=== PATIENT | male | born 1930 | race Caucasian/White ===

== ENCOUNTER 2018-10-08 17:55 | Emergency (ER) | payer MEDICARE ==
[~2018-10-08] VITALS: Ht 177.8 cm; Wt 75.8 kg
[2018-10-08 18:02] VITALS: BP 153/47
--- NOTE | 2018-10-08 18:54 | NUR ---
PT ADAM ARRIAGA AT THIS TIME.
[2018-10-08 19:00] LABS: BASOPHILS # (AUTO) 0.05 x10^3/uL (0-0.1); BASOPHILS % (AUTO) 1 % (0-1); EOSINOPHILS % (AUTO) 3 % (1-7); LYMPHOCYTES % (AUTO) 26 % (22-44); MD NO; MEAN CORPUSCULAR HEMOGLOBIN 32.9 pg (27.5-34.5); MEAN CORPUSCULAR HGB CONC 34.2 g/dL (33.2-36.2); MEAN CORPUSCULAR VOLUME 96.2 fL (81-97); MEAN PLATELET VOLUME 8.4 fL (7.4-10.4); MONOCYTES # (AUTO) 0.69 x10^3/uL (0.2-0.8); MONOCYTES % (AUTO) 11 % (2-9); NEUTROPHILS # (AUTO) 3.92 x10^3/uL (1.8-6.8); NEUTROPHILS % (AUTO) 60 % (42-75); PLATELET COUNT 177 x10^3/uL (130-400); RED BLOOD COUNT 4.54 x10^6/uL (4.38-5.82); RED CELL DISTRIBUTION WIDTH 13.5 % (9.4-14.8)
[2018-10-08 19:11] LABS: ALANINE AMINOTRANSFERASE 24 U/L (12-78); ALBUMIN 3.5 g/dL (3.4-5.0); ANION GAP 6 mmol/L (5-15); CALCIUM 8.5 mg/dL (8.5-10.1); CHLORIDE 108 mmol/L (98-107); CREATININE 1.03 mg/dL (0.7-1.3)
[2018-10-08 19:13] LABS: ALKALINE PHOSPHATASE 66 U/L (45-117); BILIRUBIN,TOTAL 0.3 mg/dL (0.2-1.0); TOTAL PROTEIN 6.8 g/dL (6.4-8.2)
--- NOTE | 2018-10-08 19:15 | NUR ---
PT RETURNED FROM [facility] AT THIS TIME .
== END 2018-10-08 20:22 | disposition home or self-care (01) ==
LOC: ED 20:02
DX: R60.0 Localized edema (principal); E78.5 Hyperlipidemia, unspecified; I10 Essential (primary) hypertension; Z85.828 Personal history of other malignant neoplasm of skin
CPT/HCPCS: 36415; 80053; 85025; 93005; 99284

== ENCOUNTER 2019-05-17 09:23 | Outpatient (CLI) | payer MEDICARE | END 2019-05-17 23:59 | disposition home or self-care (01) | LOC: CFH 09:23 | PROVIDERS: ATTEND Internal Medicine | DX: I65.23 Occlusion and stenosis of bilateral carotid arteries (principal); R27.0 Ataxia, unspecified | CPT/HCPCS: 93880 ==

== ENCOUNTER 2020-01-12 11:20 | Inpatient (IN) | payer MEDICARE ==
[~2020-01-12] VITALS: Ht 177.8 cm; Wt 80.8 kg
[~2020-01-12 11:20] MED LIST: CEFAZOLIN 1,000 MG ONE; ONDANSETRON 2MG/ML, 2ML ONE; PROPOFOL 10 MG/ML, 20ML ONE; SUCCINYLCHOLINE 20 MG/ML, 10ML ONE
[2020-01-12] MEDS ORDERED: MORPHINE SULFATE 4 MG/ML, 1ML ONE ×2 (11:38→13:55)
[2020-01-12] MEDS: MORPHINE SULFATE 4 MG/ML, 1ML IVPush PRN ×2 (11:47→14:00)
--- NOTE | 2020-01-12 11:56 | NUR ---
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 Recieved report that patient was gardening, had a fall, but did not hit head, no neck or head tenderness, but has signficant pain in tenderness with extensions of femur at the hip. Patient had some pain at the knee, but has resolved after administration of Fentanyl by the [facility] staff. Pain continues to be an issue in the left hip especially with extension, but patient reports minimal tenderness with palpation. Provider to bedside, completing assessment. orders placed for analgesic medication. RN returned, administered narcotic analgesic medication and removed patients superfluous clothing for imaging. Patient resting comforrtably at the moment with leg elevated and external rotation minimized. Awaiting imaging of hip.
[2020-01-12] MEDS ORDERED: PLEASE ENTER HEIGHT AND WEIGHT MC SCH (12:00)
[2020-01-12] MEDS ORDERED: ONDANSETRON 2MG/ML, 2ML IVPush ONE (12:00)
[2020-01-12] MEDS ORDERED: SODIUM CHLORIDE FLUSH 10ML SYR IVF ONE (12:00)
[2020-01-12] MEDS ORDERED: SODIUM CHLORIDE 0.9% 1,000 ML IV ONE ×2 (12:49→12:59)
[2020-01-12 12:55] LABS: BASOPHILS # (AUTO) 0.05 x10^3/uL (0-0.1); BASOPHILS % (AUTO) 1 % (0-1); EOSINOPHILS # (AUTO) 0.14 x10^3/uL (0-0.4); EOSINOPHILS % (AUTO) 2 % (1-7); LYMPHOCYTES % (AUTO) 18 % (22-44); MD NO; MEAN CORPUSCULAR HEMOGLOBIN 32.5 pg (27.5-34.5); MEAN CORPUSCULAR HGB CONC 33.2 g/dL (33.2-36.2); MEAN CORPUSCULAR VOLUME 97.8 fL (81-97); MONOCYTES # (AUTO) 0.51 x10^3/uL (0.2-0.8); MONOCYTES % (AUTO) 7 % (2-9); NEUTROPHILS # (AUTO) 5.39 x10^3/uL (1.8-6.8); NEUTROPHILS % (AUTO) 73 % (42-75); PLATELET COUNT 171 x10^3/uL (130-400); RED BLOOD COUNT 4.84 x10^6/uL (4.38-5.82); RED CELL DISTRIBUTION WIDTH 14.1 % (9.4-14.8)
[2020-01-12] MEDS ORDERED: ONDANSETRON 2MG/ML, 2ML IVPush PRN ×3 (13:00→18:00)
[2020-01-12] MEDS ORDERED: HYDROmorphone 1 MG/ML, 1ML INJ IVPush PRN (13:00)
[2020-01-12] MEDS ORDERED: SODIUM CHLORIDE FLUSH 10ML SYR IVF PRN (13:00)
[2020-01-12 13:06] LABS: INTERNATIONAL NORMALIZED RATIO 1.07 (0.93-1.1); PROTHROMBIN TIME 11.3 Seconds (9.6-11.5)
[2020-01-12 13:07] LABS: ALBUMIN 3.5 g/dL (3.4-5.0); ANION GAP 8 mmol/L (5-15); CHLORIDE 101 mmol/L (98-107)
--- NOTE | 2020-01-12 13:19 | NUR ---
Patient back from CT. Orders placed for admission. Hospitalist at bedside completing bedside assessment. Awaiting admission bed. RN checked vitals, vital signs stable, see vital sign flowsheet
[2020-01-12] MEDS: LISINOPRIL 10 MG TABLET PO SCH (13:30)
[2020-01-12] MEDS ORDERED: GABAPENTIN 300 MG CAPSULE PO PRN (13:30)
[2020-01-12] MEDS ORDERED: BACLOFEN 10 MG TABLET PO PRN (13:30)
[2020-01-12] MEDS ORDERED: ONDANSETRON ODT 4 MG PO PRN (13:30)
[2020-01-12] MEDS ORDERED: ACETAMINOPHEN 325 MG TABLET PO PRN (13:30)
[2020-01-12] MEDS ORDERED: hydrALAzine 20 MG/ML, 1ML IVPush PRN (13:30)
[2020-01-12] MEDS ORDERED: PRAV40TA2 PO (14:04)
[2020-01-12] MEDS ORDERED: BENA20TA5 PO (14:04)
[2020-01-12] MEDS ORDERED: TEMA15CA PO (14:04)
[2020-01-12] MEDS ORDERED: LEVO100T5 PO (14:04)
[2020-01-12] MEDS ORDERED: ASPI-496 PO (14:06)
[2020-01-12] MEDS ORDERED: TIMO5DRO5 OP (14:06)
--- NOTE | 2020-01-12 14:06 | NUR ---
TASK RN: PT MEDICATED PER EMAR. MED REC DONE.
[2020-01-12 14:50] VITALS: BP 174/68
[2020-01-12 15:50] VITALS: BP 172/61
[2020-01-12] MEDS ORDERED: MIDAZOLAM 1 MG/ML, 2ML ONE (15:56)
[2020-01-12] MEDS ORDERED: FENTANYL PF 250 MCG/5ML ONE (15:56)
[2020-01-12] MEDS: HYDROmorphone 2 MG/ML, 1ML IVPush PRN ×3 (16:04→20:27)
[2020-01-12 16:20] VITALS: BP 180/63
[2020-01-12] MEDS ORDERED: TRANEXAMIC ACID 100 MG/ML, 10ML ONE (17:29)
[2020-01-12] MEDS ORDERED: LABETALOL 5MG/ML, 20ML IV PRN (18:00)
[2020-01-12] MEDS ORDERED: ALBUTEROL SULFATE 2.5 MG/3 ML NPPB PRN (18:00)
[2020-01-12] MEDS ORDERED: METOCLOPRAMIDE 5 MG/ML, 2ML IV PRN (18:00)
[2020-01-12] MEDS ORDERED: DIAZEPAM 5 MG/ML, 2ML IV PRN ×2 (18:00)
[2020-01-12] MEDS ORDERED: KETOROLAC 30 MG/1 ML IV PRN (18:00)
[2020-01-12] MEDS ORDERED: MEPERIDINE/PF 25MG/0.5ML IVPush PRN (18:00)
[2020-01-12] MEDS ORDERED: hydrALAzine 20 MG/ML, 1ML IV PRN (18:00)
[2020-01-12] MEDS ORDERED: OXYcodone 5 MG/5 ML ORAL.SOL UDC PO PRN (18:00)
[2020-01-12] MEDS ORDERED: FENTANYL PF 100 MCG/2ML IV PRN (18:00)
[2020-01-12] MEDS ORDERED: HYDROmorphone 1 MG/ML, 1ML INJ IV PRN (18:00)
[2020-01-12] MEDS ORDERED: PROMETHAZINE 25 MG/ML, 1ML IV PRN (18:00)
[2020-01-12] MEDS ORDERED: OXYcodone 5 MG/5 ML ORAL.SOL UDC ONE (18:57)
[2020-01-12] MEDS ORDERED: FENTANYL PF 100 MCG/2ML ONE (18:57)
[2020-01-12 19:35] VITALS: BP 100/49
[2020-01-12] MEDS: OXYcodone IR 5MG TABLET PO PRN (20:20)
[2020-01-12] MEDS: PRAVASTATIN 20 MG TABLET PO SCH ×2 (20:20→21:00)
[2020-01-12] MEDS: TIMOLOL MC SCH (21:00)
[2020-01-12] MEDS: BENAZAPRIL MC SCH (21:00)
[2020-01-12] MEDS ORDERED: TEMAZEPAM 15 MG CAPSULE PO PRN (21:00)
[2020-01-13] MEDS ORDERED: SODIUM CHLORIDE 0.9%, 500ML IVBOLUS ONE ×2 (00:30→17:00)
[2020-01-13 00:44] VITALS: BP 101/61
[2020-01-13] MEDS: CEFAZOLIN PMX 1GM/50ML 50 ML IV SCH ×3 (02:43→18:32)
[2020-01-13 04:04] VITALS: BP 84/53
[2020-01-13] MEDS ORDERED: LACTATED RINGERS 1,000 ML IV SCH ×2 (04:30→10:00)
[2020-01-13 04:47] LABS: BASOPHILS # (AUTO) 0.03 x10^3/uL (0-0.1); BASOPHILS % (AUTO) 0 % (0-1); EOSINOPHILS % (AUTO) 1 % (1-7); LYMPHOCYTES # (AUTO) 1.14 x10^3/uL (1-3.4); LYMPHOCYTES % (AUTO) 9 % (22-44); MD NO; MEAN CORPUSCULAR HEMOGLOBIN 33.3 pg (27.5-34.5); MEAN CORPUSCULAR HGB CONC 34.2 g/dL (33.2-36.2); MEAN CORPUSCULAR VOLUME 97.3 fL (81-97); MEAN PLATELET VOLUME 8.1 fL (7.4-10.4); MONOCYTES # (AUTO) 0.87 x10^3/uL (0.2-0.8); MONOCYTES % (AUTO) 7 % (2-9); NEUTROPHILS # (AUTO) 9.87 x10^3/uL (1.8-6.8); NEUTROPHILS % (AUTO) 82 % (42-75); PLATELET COUNT 150 x10^3/uL (130-400); RED BLOOD COUNT 3.26 x10^6/uL (4.38-5.82)
[2020-01-13 04:49] LABS: ANION GAP 7 mmol/L (5-15); CALCIUM 8.1 mg/dL (8.5-10.1); CHLORIDE 103 mmol/L (98-107); CREATININE 1.41 mg/dL (0.7-1.3)
[2020-01-13] MEDS: TIMOLOL MC SCH ×3 (05:00→21:00)
[2020-01-13] MEDS: BENAZAPRIL MC SCH ×3 (05:00→21:00)
[2020-01-13] MEDS: ASPIRIN 81 MG TABLET EC PO SCH (05:38)
[2020-01-13] MEDS: LEVOTHYROXINE 100 MCG TABLET PO SCH (05:38)
[2020-01-13 07:58] VITALS: BP 96/58
[2020-01-13] MEDS: LISINOPRIL 10 MG TABLET PO SCH (08:12)
[2020-01-13] MEDS ORDERED: LACTATED RINGERS 500 ML IVBOLUS ONE (08:30)
[2020-01-13] MEDS ORDERED: LACTATED RINGERS 500 ML IV SCH (09:00)
[2020-01-13] MEDS: ENOXAPARIN 40 MG/0.4 ML SQ SCH (11:12)
[2020-01-13 13:28] VITALS: BP 90/57
[2020-01-13] MEDS: SODIUM CHLORIDE 0.9% 1,000 ML IV SCH (17:14)
[2020-01-13 17:57] VITALS: BP 128/68
[2020-01-13] MEDS: OXYcodone IR 5MG TABLET PO PRN ×2 (18:38→22:40)
[2020-01-13 19:24] VITALS: BP 112/42
[2020-01-13] MEDS: PRAVASTATIN 20 MG TABLET PO SCH (21:09)
[2020-01-14] MEDS: CEFAZOLIN PMX 1GM/50ML 50 ML IV SCH ×3 (02:21→18:15)
[2020-01-14 02:22] VITALS: BP 108/46
[2020-01-14 04:53] LABS: BASOPHILS # (AUTO) 0.03 x10^3/uL (0-0.1); BASOPHILS % (AUTO) 0 % (0-1); EOSINOPHILS # (AUTO) 0.43 x10^3/uL (0-0.4); EOSINOPHILS % (AUTO) 5 % (1-7); LYMPHOCYTES # (AUTO) 1.61 x10^3/uL (1-3.4); LYMPHOCYTES % (AUTO) 17 % (22-44); MD NO; MEAN CORPUSCULAR HEMOGLOBIN 32.6 pg (27.5-34.5); MEAN CORPUSCULAR HGB CONC 33.4 g/dL (33.2-36.2); MEAN CORPUSCULAR VOLUME 97.4 fL (81-97); MEAN PLATELET VOLUME 8.2 fL (7.4-10.4); MONOCYTES # (AUTO) 1.13 x10^3/uL (0.2-0.8); MONOCYTES % (AUTO) 12 % (2-9); NEUTROPHILS # (AUTO) 6.39 x10^3/uL (1.8-6.8); NEUTROPHILS % (AUTO) 67 % (42-75); PLATELET COUNT 122 x10^3/uL (130-400); RED CELL DISTRIBUTION WIDTH 14.5 % (9.4-14.8)
[2020-01-14] MEDS: BENAZAPRIL MC SCH (05:00)
[2020-01-14] MEDS: TIMOLOL MC SCH (05:00)
[2020-01-14 05:03] LABS: ALANINE AMINOTRANSFERASE 13 U/L (12-78); ALBUMIN 2.2 g/dL (3.4-5.0); ANION GAP 5 mmol/L (5-15); CALCIUM 7.7 mg/dL (8.5-10.1); CHLORIDE 102 mmol/L (98-107); CREATININE 1.56 mg/dL (0.7-1.3)
[2020-01-14 05:06] LABS: ALKALINE PHOSPHATASE 31 U/L (45-117); BILIRUBIN,TOTAL 0.4 mg/dL (0.2-1.0); TOTAL PROTEIN 4.9 g/dL (6.4-8.2)
[2020-01-14] MEDS: ASPIRIN 81 MG TABLET EC PO SCH (05:15)
[2020-01-14] MEDS: LEVOTHYROXINE 100 MCG TABLET PO SCH (05:15)
[2020-01-14] MEDS: SODIUM CHLORIDE 0.9% 1,000 ML IV SCH ×2 (05:15→16:02)
[2020-01-14 07:14] VITALS: BP 130/66
[2020-01-14] MEDS: OXYcodone IR 5MG TABLET PO PRN (07:38)
[2020-01-14] MEDS: LISINOPRIL 10 MG TABLET PO SCH (09:00)
[2020-01-14] MEDS: ENOXAPARIN 40 MG/0.4 ML SQ SCH (10:09)
[2020-01-14] MEDS: TAMSULOSIN 0.4 MG CAP.ER.24H PO SCH (13:06)
[2020-01-14 13:41] VITALS: BP 111/43
[2020-01-14] MEDS ORDERED: BISACODYL 10 MG SUPP PR PRN (17:00)
[2020-01-14 19:47] VITALS: BP 135/55
[2020-01-14] MEDS: PRAVASTATIN 20 MG TABLET PO SCH (20:30)
[2020-01-14] MEDS: DOCUSATE 100 MG CAPSULE PO SCH (20:30)
[2020-01-14] MEDS: TIMOLOL OPHTH 0.5%, 5ML LEFTEYE SCH (20:30)
[2020-01-15] VITALS (8 sets, daily range): BP systolic 52–153; BP diastolic 48–65
[2020-01-15 00:52] LABS: MEAN CORPUSCULAR HEMOGLOBIN 32.4 pg (27.5-34.5); MEAN CORPUSCULAR HGB CONC 33.4 g/dL (33.2-36.2); MEAN CORPUSCULAR VOLUME 96.9 fL (81-97); MEAN PLATELET VOLUME 7.7 fL (7.4-10.4); PLATELET COUNT 116 x10^3/uL (130-400); RED BLOOD COUNT 2.35 x10^6/uL (4.38-5.82); RED CELL DISTRIBUTION WIDTH 14.3 % (9.4-14.8)
[2020-01-15 01:09] LABS: BASOPHILS # (AUTO) 0.02 x10^3/uL (0-0.1); BASOPHILS % (AUTO) 0 % (0-1); EOSINOPHILS # (AUTO) 0.06 x10^3/uL (0-0.4); EOSINOPHILS % (AUTO) 1 % (1-7); LYMPHOCYTES % (AUTO) 12 % (22-44); MD SCAN; MONOCYTES # (AUTO) 0.48 x10^3/uL (0.2-0.8); MONOCYTES % (AUTO) 8 % (2-9); NEUTROPHILS # (AUTO) 4.71 x10^3/uL (1.8-6.8); NEUTROPHILS % (AUTO) 79 % (42-75)
[2020-01-15] MEDS: SODIUM CHLORIDE 0.9% 1,000 ML IV SCH ×2 (03:00→11:43)
[2020-01-15 05:23] LABS: MEAN CORPUSCULAR HEMOGLOBIN 33.2 pg (27.5-34.5); MEAN CORPUSCULAR HGB CONC 34.1 g/dL (33.2-36.2); MEAN CORPUSCULAR VOLUME 97.4 fL (81-97); PLATELET COUNT 110 x10^3/uL (130-400); RED BLOOD COUNT 2.18 x10^6/uL (4.38-5.82); RED CELL DISTRIBUTION WIDTH 14.2 % (9.4-14.8)
[2020-01-15 05:28] LABS: ALBUMIN 2.1 g/dL (3.4-5.0); ANION GAP 4 mmol/L (5-15); CALCIUM 7.6 mg/dL (8.5-10.1); CHLORIDE 105 mmol/L (98-107)
[2020-01-15 05:31] LABS: ALANINE AMINOTRANSFERASE 15 U/L (12-78); ALKALINE PHOSPHATASE 37 U/L (45-117); BILIRUBIN,TOTAL 0.7 mg/dL (0.2-1.0); TOTAL PROTEIN 4.8 g/dL (6.4-8.2)
[2020-01-15] MEDS: ASPIRIN 81 MG TABLET EC PO SCH (06:00)
[2020-01-15 06:06] LABS: BASOPHILS # (AUTO) 0.03 x10^3/uL (0-0.1); BASOPHILS % (AUTO) 1 % (0-1); EOSINOPHILS # (AUTO) 0.12 x10^3/uL (0-0.4); EOSINOPHILS % (AUTO) 2 % (1-7); LYMPHOCYTES # (AUTO) 1.03 x10^3/uL (1-3.4); LYMPHOCYTES % (AUTO) 17 % (22-44); MD SCAN; MONOCYTES # (AUTO) 0.73 x10^3/uL (0.2-0.8); MONOCYTES % (AUTO) 12 % (2-9); NEUTROPHILS % (AUTO) 69 % (42-75)
[2020-01-15] MEDS: LEVOTHYROXINE 100 MCG TABLET PO SCH (06:15)
[2020-01-15] MEDS ORDERED: ACETAMINOPHEN 325 MG TABLET PO ONE (07:30)
[2020-01-15] MEDS ORDERED: DIPHENHYDRAMINE 50 MG/ML, 1ML IVPush ONE (07:30)
[2020-01-15] MEDS ORDERED: SODIUM CHLORIDE NASAL SPRAY 45ML BOTTLE NAS PRN (08:30)
[2020-01-15] MEDS ORDERED: OXYMETAZOLINE NASAL SPRAY 0.05%, 15ML NAS PRN (08:30)
[2020-01-15] MEDS: LISINOPRIL 10 MG TABLET PO SCH (08:37)
[2020-01-15] MEDS: FLUTICASONE NASAL SPRAY 16GM NAS SCH ×2 (09:00→20:24)
[2020-01-15] MEDS ORDERED: MAGNESIUM HYDROXIDE 8%, 30ML UDC PO SCH (09:00)
[2020-01-15] MEDS: ENOXAPARIN 40 MG/0.4 ML SQ SCH (09:06)
[2020-01-15] MEDS: POLYETHYLENE GLYCOL 17 GM PACKET PO SCH (09:15)
[2020-01-15] MEDS: TAMSULOSIN 0.4 MG CAP.ER.24H PO SCH (09:15)
[2020-01-15] MEDS: DOCUSATE 100 MG CAPSULE PO SCH ×2 (09:15→20:24)
[2020-01-15] MEDS ORDERED: MAGNESIUM HYDROXIDE 8%, 30ML UDC PO PRN (09:30)
[2020-01-15] MEDS ORDERED: CALCIUM CARBONATE 500 MG TAB.CHEW ONE (13:18)
[2020-01-15] MEDS ORDERED: OMEPRAZOLE 20 MG CAPSULE.DR ONE (13:18)
[2020-01-15] MEDS: OMEPRAZOLE 20 MG CAPSULE.DR PO SCH (13:20)
[2020-01-15] MEDS ORDERED: CALCIUM CARBONATE 500 MG TAB.CHEW PO PRN (13:30)
[2020-01-15] MEDS ORDERED: CALCIUM CARBONATE 500 MG TAB.CHEW PO SCH (16:00)
[2020-01-15] MEDS: PRAVASTATIN 20 MG TABLET PO SCH (20:24)
[2020-01-15] MEDS: TIMOLOL OPHTH 0.5%, 5ML LEFTEYE SCH (20:24)
[2020-01-16 01:44] VITALS: BP 149/72
[2020-01-16] MEDS: OXYcodone IR 5MG TABLET PO PRN ×3 (02:33→23:29)
[2020-01-16] MEDS: SODIUM CHLORIDE 0.9% 1,000 ML IV SCH ×3 (02:34→17:18)
[2020-01-16 05:54] LABS: ALBUMIN 2.1 g/dL (3.4-5.0); ANION GAP 5 mmol/L (5-15); CALCIUM 7.7 mg/dL (8.5-10.1); CHLORIDE 106 mmol/L (98-107)
[2020-01-16 05:55] LABS: BASOPHILS # (AUTO) 0.03 x10^3/uL (0-0.1); BASOPHILS % (AUTO) 1 % (0-1); EOSINOPHILS # (AUTO) 0.26 x10^3/uL (0-0.4); EOSINOPHILS % (AUTO) 4 % (1-7); LYMPHOCYTES # (AUTO) 1.24 x10^3/uL (1-3.4); LYMPHOCYTES % (AUTO) 19 % (22-44); MD NO; MEAN CORPUSCULAR HEMOGLOBIN 32.3 pg (27.5-34.5); MEAN CORPUSCULAR HGB CONC 33.5 g/dL (33.2-36.2); MEAN CORPUSCULAR VOLUME 96.4 fL (81-97); MEAN PLATELET VOLUME 8.2 fL (7.4-10.4); MONOCYTES # (AUTO) 0.74 x10^3/uL (0.2-0.8); MONOCYTES % (AUTO) 11 % (2-9); NEUTROPHILS # (AUTO) 4.34 x10^3/uL (1.8-6.8); NEUTROPHILS % (AUTO) 66 % (42-75); PLATELET COUNT 129 x10^3/uL (130-400); RED BLOOD COUNT 2.53 x10^6/uL (4.38-5.82); RED CELL DISTRIBUTION WIDTH 14.4 % (9.4-14.8)
[2020-01-16 05:58] LABS: ALANINE AMINOTRANSFERASE 21 U/L (12-78); ALKALINE PHOSPHATASE 43 U/L (45-117); CREATININE 0.73 mg/dL (0.7-1.3); TOTAL PROTEIN 4.9 g/dL (6.4-8.2)
[2020-01-16] MEDS: LEVOTHYROXINE 100 MCG TABLET PO SCH (06:24)
[2020-01-16] MEDS: OMEPRAZOLE 20 MG CAPSULE.DR PO SCH (06:24)
[2020-01-16 08:00] VITALS: BP 140/54
[2020-01-16] MEDS: FLUTICASONE NASAL SPRAY 16GM NAS SCH ×2 (08:42→20:30)
[2020-01-16] MEDS: POLYETHYLENE GLYCOL 17 GM PACKET PO SCH (08:42)
[2020-01-16] MEDS: DOCUSATE 100 MG CAPSULE PO SCH ×2 (08:42→20:28)
[2020-01-16] MEDS: LISINOPRIL 10 MG TABLET PO SCH (08:42)
[2020-01-16] MEDS: TAMSULOSIN 0.4 MG CAP.ER.24H PO SCH (08:42)
[2020-01-16 12:43] VITALS: BP 137/60
[2020-01-16 19:18] VITALS: BP 148/57
[2020-01-16] MEDS: PRAVASTATIN 20 MG TABLET PO SCH (20:28)
[2020-01-16] MEDS: TIMOLOL OPHTH 0.5%, 5ML LEFTEYE SCH (20:28)
[2020-01-17] MEDS: SODIUM CHLORIDE 0.9% 1,000 ML IV SCH ×2 (02:13→18:00)
[2020-01-17 02:19] VITALS: BP 164/67
[2020-01-17] MEDS: LEVOTHYROXINE 100 MCG TABLET PO SCH (04:49)
[2020-01-17] MEDS: OMEPRAZOLE 20 MG CAPSULE.DR PO SCH (04:49)
[2020-01-17 05:21] LABS: BASOPHILS # (AUTO) 0.06 x10^3/uL (0-0.1); BASOPHILS % (AUTO) 1 % (0-1); EOSINOPHILS # (AUTO) 0.28 x10^3/uL (0-0.4); EOSINOPHILS % (AUTO) 4 % (1-7); LYMPHOCYTES # (AUTO) 1.28 x10^3/uL (1-3.4); LYMPHOCYTES % (AUTO) 18 % (22-44); MD NO; MEAN CORPUSCULAR HEMOGLOBIN 32.1 pg (27.5-34.5); MEAN CORPUSCULAR HGB CONC 32.9 g/dL (33.2-36.2); MEAN CORPUSCULAR VOLUME 97.6 fL (81-97); MEAN PLATELET VOLUME 7.5 fL (7.4-10.4); MONOCYTES # (AUTO) 0.85 x10^3/uL (0.2-0.8); MONOCYTES % (AUTO) 12 % (2-9); NEUTROPHILS # (AUTO) 4.55 x10^3/uL (1.8-6.8); NEUTROPHILS % (AUTO) 65 % (42-75); PLATELET COUNT 165 x10^3/uL (130-400); RED CELL DISTRIBUTION WIDTH 13.9 % (9.4-14.8)
[2020-01-17 05:32] LABS: ANION GAP 4 mmol/L (5-15); CALCIUM 8.1 mg/dL (8.5-10.1); CHLORIDE 105 mmol/L (98-107); CREATININE 0.74 mg/dL (0.7-1.3)
[2020-01-17 07:15] VITALS: BP 165/69
[2020-01-17] MEDS: DOCUSATE 100 MG CAPSULE PO SCH (09:00)
[2020-01-17] MEDS: TAMSULOSIN 0.4 MG CAP.ER.24H PO SCH (09:00)
[2020-01-17] MEDS: POLYETHYLENE GLYCOL 17 GM PACKET PO SCH (09:00)
[2020-01-17] MEDS: FLUTICASONE NASAL SPRAY 16GM NAS SCH (09:00)
[2020-01-17] MEDS: LISINOPRIL 10 MG TABLET PO SCH (09:05)
[2020-01-17 10:50] VITALS: BP_SYST 156; BP_SYST 157; BP_SYST 93; BP_DIAS 52; BP_DIAS 63; BP_DIAS 80
[2020-01-17] MEDS ORDERED: OXYC5TAB3 PO (11:29)
[2020-01-17] MEDS ORDERED: TAMS-11 PO (11:29)
[2020-01-17 13:50] VITALS: BP 147/79
== END 2020-01-17 18:50 | disposition home or self-care (01) | DRG 469 ==
LOC: ED 12:18 → EDIP 12:59 → SUATTDRO 13:09 → 4NE 14:36
PROVIDERS: ADMIT Hospitalist; ATTEND Hospitalist
PROC: 30233N1 Transfusion of Nonautologous Red Blood Cells into Peripheral Vein, Percutaneous Approach (ICD-10-PCS; 2020-01-15)
PROC: 0SRS0JA Replacement of Left Hip Joint, Femoral Surface with Synthetic Substitute, Uncemented, Open Approach (ICD-10-PCS; principal; 2020-01-16)
PROC: 0MBM0ZZ Excision of Left Hip Bursa and Ligament, Open Approach (ICD-10-PCS; 2020-01-16)
DX: S72.012A Unspecified intracapsular fracture of left femur, initial encounter for closed fracture (principal); N17.0 Acute kidney failure with tubular necrosis; E03.9 Hypothyroidism, unspecified; E78.5 Hyperlipidemia, unspecified; H40.9 Unspecified glaucoma; I10 Essential (primary) hypertension; I95.1 Orthostatic hypotension; R33.9 Retention of urine, unspecified; I44.7 Left bundle-branch block, unspecified; D64.9 Anemia, unspecified; W01.0XXA Fall on same level from slipping, tripping and stumbling without subsequent striking against object, initial encounter; Y93.89 Activity, other specified; Z87.891 Personal history of nicotine dependence; Y92.098 Other place in other non-institutional residence as the place of occurrence of the external cause; Y99.8 Other external cause status
CPT/HCPCS: 36415; 71045; 72170; 80048; 80053; 82040; 84443; 85014; 85018; 85025; 85610; 85730; 86850; 86900; 86923; 93005; 96374; 96376; G0378; J0690; J1170; J1650; J2250; J2405; J2704; J3010; J7120; C1776; J0330; J0360; J1200; J2270; J7030; J7040; P9016

== ENCOUNTER 2020-06-06 13:02 | Inpatient (IN) | payer MEDICARE ==
[~2020-06-06] VITALS: Ht 177.8 cm; Wt 71.7 kg
[~2020-06-06 13:02] MED LIST changes: +ASPI-496 PO; +BENA20TA5 PO; -CEFAZOLIN 1,000 MG ONE; +LEVO100T5 PO; -ONDANSETRON 2MG/ML, 2ML ONE; +OXYC5TAB3 PO; +PRAV40TA2 PO; -PROPOFOL 10 MG/ML, 20ML ONE; -SUCCINYLCHOLINE 20 MG/ML, 10ML ONE; +TAMS-11 PO; +TEMA15CA PO; +TIMO5DRO5 OP
--- NOTE | 2020-06-06 13:05 | NUR ---
MANAGER ACADEMIC: MEMORY LOSS 30 MINUTES PURCHASING/RECEIVING (UNABLE TO NAME OBJECTS/PEOPLE), LIGHTHEADED, IMPAIRED BALANCE TAKES ASPIRIN DENIES HEADACHE, CP, SOB, TINGLING, NUMBNESS. NO ARM DRIFT, FACE SYMMETRICAL. IN TRIAGE TO EVAL PATIENT.
--- NOTE | 2020-06-06 13:28 | NUR ---
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 NO SLURRED SPEACH OR NEURO DEFICITS NOTED
[2020-06-06 13:30] LABS: BASOPHILS # (AUTO) 0.12 x10^3/uL (0-0.1); BASOPHILS % (AUTO) 1 % (0-1); EOSINOPHILS # (AUTO) 0.34 x10^3/uL (0-0.4); EOSINOPHILS % (AUTO) 4 % (1-7); LYMPHOCYTES # (AUTO) 2.56 x10^3/uL (1-3.4); LYMPHOCYTES % (AUTO) 31 % (22-44); MD NO; MEAN CORPUSCULAR HEMOGLOBIN 32.4 pg (27.5-34.5); MEAN CORPUSCULAR HGB CONC 33.6 g/dL (33.2-36.2); MEAN CORPUSCULAR VOLUME 96.3 fL (81-97); MEAN PLATELET VOLUME 8.2 fL (7.4-10.4); MONOCYTES # (AUTO) 0.84 x10^3/uL (0.2-0.8); MONOCYTES % (AUTO) 10 % (2-9); NEUTROPHILS % (AUTO) 53 % (42-75); PLATELET COUNT 187 x10^3/uL (130-400); RED BLOOD COUNT 4.79 x10^6/uL (4.38-5.82); RED CELL DISTRIBUTION WIDTH 14.4 % (9.4-14.8)
[2020-06-06 13:40] LABS: ALANINE AMINOTRANSFERASE 29 U/L (12-78); ALBUMIN 3.9 g/dL (3.4-5.0); ANION GAP 6 mmol/L (5-15); CALCIUM 9.3 mg/dL (8.5-10.1); CHLORIDE 99 mmol/L (98-107); CREATININE 0.96 mg/dL (0.7-1.3); INTERNATIONAL NORMALIZED RATIO 1.08 (0.93-1.1); PROTHROMBIN TIME 11.1 Seconds (9.6-11.5)
[2020-06-06 13:43] LABS: ALKALINE PHOSPHATASE 66 U/L (45-117); BILIRUBIN,TOTAL 0.8 mg/dL (0.2-1.0); TOTAL PROTEIN 7.6 g/dL (6.4-8.2)
--- NOTE | 2020-06-06 15:32 | NUR ---
PT REPORTS NEUROTELE CONSULT COMPLETE. RESTING ON GURNEY W/ CALL LIGHT IN REACH AND FAMILY AT BEDSIDE. KARSON.
[2020-06-06] MEDS ORDERED: SODIUM CHLORIDE FLUSH 10ML SYR IVF PRN (16:00)
[2020-06-06] MEDS ORDERED: OMNIPAQUE 350 MG/ML, 100ML BOTTLE ONE (16:38)
--- NOTE | 2020-06-06 16:59 | NUR ---
PT RESTING ON GURNEY W/ CALL LIGHT IN REACH AND SIDE RAILS UPX2. RESP EVEN AND UNLABORED, KARSON.
[2020-06-06] MEDS ORDERED: DOCUSATE 100 MG CAPSULE PO PRN (17:00)
[2020-06-06] MEDS ORDERED: ONDANSETRON 2MG/ML, 2ML IVPush PRN (17:00)
[2020-06-06] MEDS ORDERED: OXYcodone IR 5MG TABLET PO PRN (17:30)
--- NOTE | 2020-06-06 18:59 | NUR ---
PT RESTING ON GURNEY W/ CALL LIGHT IN REACH AND SIDE RAILS UPX2. RESP EVEN AND UNLABORED, KARSON.
--- NOTE | 2020-06-06 20:03 | NUR ---
ATTEMPT TO CALL REPORT, RN UNAVAILABLE.
--- NOTE | 2020-06-06 20:19 | NUR ---
ATTEMPT TO CALL REPORTX2, RN UNAVAILABLE.
[2020-06-06] MEDS ORDERED: FAMOTIDINE 20 MG/2 ML ONE (20:31)
[2020-06-06] MEDS: FAMOTIDINE 20 MG/2 ML IVPush SCH (20:33)
[2020-06-06] MEDS: BENAZEPRIL 20 MG TABLET PO SCH (20:33)
--- NOTE | 2020-06-06 20:36 | NUR ---
REPORT GIVEN TO LILLIAM HUGO. PT IS READY FOR TRANSPORT AT THIS TIME. RESP EVEN AND UNLABORED, KARSON.
[2020-06-06] MEDS ORDERED: TEMAZEPAM 15 MG CAPSULE PO SCH (21:00)
[2020-06-06 21:22] VITALS: BP 171/71
[2020-06-07 00:41] VITALS: BP 150/62
[2020-06-07 04:09] VITALS: BP 155/66
[2020-06-07] MEDS ORDERED: LEVOTHYROXINE 100 MCG TABLET PO SCH (06:00)
[2020-06-07 06:08] LABS: CHLORIDE 101 mmol/L (98-107)
[2020-06-07 06:18] LABS: ALANINE AMINOTRANSFERASE 19 U/L (12-78); ALBUMIN 3.2 g/dL (3.4-5.0); ALKALINE PHOSPHATASE 54 U/L (45-117); ANION GAP 8 mmol/L (5-15); BASOPHILS # (AUTO) 0.06 x10^3/uL (0-0.1); BASOPHILS % (AUTO) 1 % (0-1); BILIRUBIN,TOTAL 0.6 mg/dL (0.2-1.0); CALCIUM 9.3 mg/dL (8.5-10.1); CHOL/HDL RATIO 2.2; CHOLESTEROL, TOTAL 182 mg/dL (140-239); CREATININE 0.81 mg/dL (0.7-1.3); EOSINOPHILS # (AUTO) 0.36 x10^3/uL (0-0.4); EOSINOPHILS % (AUTO) 6 % (1-7); HDL CHOL % 45 % (26-37); HDL CHOLESTEROL (DIRECT) 81 mg/dL (40-60); LDL CHOLESTEROL,CALCULATED 86 mg/dL (54-169); LDL/HDL RATIO 1.1 (0.5-3.0); LYMPHOCYTES % (AUTO) 33 % (22-44); MD NO; MEAN CORPUSCULAR HEMOGLOBIN 31.6 pg (27.5-34.5); MEAN CORPUSCULAR HGB CONC 32.7 g/dL (33.2-36.2); MEAN CORPUSCULAR VOLUME 96.7 fL (81-97); MEAN PLATELET VOLUME 8.4 fL (7.4-10.4); MONOCYTES # (AUTO) 0.74 x10^3/uL (0.2-0.8); MONOCYTES % (AUTO) 12 % (2-9); NEUTROPHILS # (AUTO) 2.93 x10^3/uL (1.8-6.8); NEUTROPHILS % (AUTO) 48 % (42-75); PLATELET COUNT 149 x10^3/uL (130-400); RED BLOOD COUNT 4.35 x10^6/uL (4.38-5.82); RED CELL DISTRIBUTION WIDTH 14.5 % (9.4-14.8); TOTAL PROTEIN 6.3 g/dL (6.4-8.2); TRIGLYCERIDES 75 mg/dL (50-200); VLDL CHOLESTEROL 15 mg/dL (0-25)
[2020-06-07] MEDS ORDERED: TAMSULOSIN 0.4 MG CAP.ER.24H PO SCH (09:00)
[2020-06-07] MEDS ORDERED: TIMOLOL OPHTH 0.5%, 5ML OP SCH (09:00)
[2020-06-07] MEDS ORDERED: ASPIRIN 81 MG TABLET EC PO SCH (09:00)
[2020-06-07] MEDS: BENAZEPRIL 20 MG TABLET PO SCH (09:59)
[2020-06-07] MEDS: FAMOTIDINE 20 MG/2 ML IVPush SCH (10:01)
[2020-06-07 10:30] VITALS: BP 144/68
[2020-06-07] MEDS ORDERED: AMLO2.5T5 PO (14:51)
[2020-06-07] MEDS ORDERED: CLOP75TA52 PO (14:51)
[2020-06-07] MEDS ORDERED: ATOR40TA PO (14:52)
[2020-06-07 16:00] VITALS: BP 145/72
[2020-06-07] MEDS ORDERED: FAMOTIDINE 20 MG TABLET PO SCH (21:00)
[2020-06-07] MEDS ORDERED: TIMOLOL OPHTH 0.5%, 5ML LEFTEYE SCH (21:00)
[2020-06-08] MEDS ORDERED: AMLODIPINE 2.5 MG TABLET PO SCH (09:00)
== END 2020-06-07 17:56 | disposition home or self-care (01) | DRG 69 ==
LOC: ED 16:51 → EDIP 16:55 → 5SO 20:50
PROVIDERS: ADMIT Internal Medicine; ATTEND Hospitalist
DX: G45.9 Transient cerebral ischemic attack, unspecified (principal); E87.1 Hypo-osmolality and hyponatremia; E46 Unspecified protein-calorie malnutrition; I50.32 Chronic diastolic (congestive) heart failure; E03.9 Hypothyroidism, unspecified; E78.5 Hyperlipidemia, unspecified; G46.1 Anterior cerebral artery syndrome; H40.9 Unspecified glaucoma; I11.0 Hypertensive heart disease with heart failure; I44.7 Left bundle-branch block, unspecified; I35.1 Nonrheumatic aortic (valve) insufficiency; Z79.82 Long term (current) use of aspirin; Z82.5 Family history of asthma and other chronic lower respiratory diseases; Z82.49 Family history of ischemic heart disease and other diseases of the circulatory system; Z68.22 Body mass index [BMI] 22.0-22.9, adult
CPT/HCPCS: 36415; 70450; 70496; 70498; 70551; 71045; 80048; 80053; 80061; 83036; 83735; 84100; 84443; 85025; 85610; 85730; 93005; 93306; 93356; 93880; 96360; 96374; 99284; G0378; Q9967; J3490; J7030

== ENCOUNTER 2020-06-07 19:27 | Emergency (ER) | payer MEDICARE ==
[~2020-06-07] VITALS: Ht 177.8 cm; Wt 68.0 kg
[~2020-06-07 19:27] MED LIST changes: +AMLO2.5T5 PO; +ATOR40TA PO; +CLOP75TA52 PO
--- NOTE | 2020-06-07 19:42 | NUR ---
TASK RN: TRUDY PRIETO FROM HOME S/P SYNCOPAL EPISODE. PT REPORTS SYNCOPE AFTER STANDING, NEAR SYNCOPAL W NAUSEA YESTERDAY ALSO UPON STANDING YESTERDAY. PER [facility], PT WAS INITIALLY PALE WITH POSITIVE ORTHOSTATICS ON SCENE. FSBS 106. GIVEN ONE LITER NS R D ENGINEER WIHT POSITIVE EFFECT. PT DC'D FROM [facility] [place] YESTERDAY AFTER EVAL FOR TIA. GROSS NEURO INTACT; PT DENIES CP/SOB/STOUT OR DIZZINESS/MIDLINE NECK OR BACK PAIN/BLOOD IN EMESIS OR STOOL. UPON ARRIVAL, PT MILDLY PALE; WARM/DRY, A&OX4. BP/SPO2/ECG MONITORING IN PLACE. EKG COMPLETED UPON ARRIVAL. HEART BLOCK NOTED ON MONITOR. VS OTHERWISE STABLE. BP WNL IN SEMI SMALL POSITION. REPORT TO PRIMARY RN, KURTIS
[2020-06-07] MEDS ORDERED: SODIUM CHLORIDE 0.9% 1,000ML IVBOLUS ONE (20:00)
[2020-06-07 20:09] LABS: BASOPHILS # (AUTO) 0.06 x10^3/uL (0-0.1); BASOPHILS % (AUTO) 1 % (0-1); EOSINOPHILS # (AUTO) 0.23 x10^3/uL (0-0.4); EOSINOPHILS % (AUTO) 5 % (1-7); LYMPHOCYTES # (AUTO) 1.31 x10^3/uL (1-3.4); LYMPHOCYTES % (AUTO) 26 % (22-44); MD NO; MEAN CORPUSCULAR HEMOGLOBIN 32.2 pg (27.5-34.5); MEAN CORPUSCULAR HGB CONC 33.6 g/dL (33.2-36.2); MEAN CORPUSCULAR VOLUME 95.8 fL (81-97); MEAN PLATELET VOLUME 7.9 fL (7.4-10.4); MONOCYTES # (AUTO) 0.57 x10^3/uL (0.2-0.8); MONOCYTES % (AUTO) 11 % (2-9); NEUTROPHILS # (AUTO) 2.89 x10^3/uL (1.8-6.8); NEUTROPHILS % (AUTO) 57 % (42-75); PLATELET COUNT 146 x10^3/uL (130-400); RED BLOOD COUNT 4.39 x10^6/uL (4.38-5.82); RED CELL DISTRIBUTION WIDTH 14.4 % (9.4-14.8)
[2020-06-07 20:21] LABS: ANION GAP 6 mmol/L (5-15); CALCIUM 8.8 mg/dL (8.5-10.1); CHLORIDE 103 mmol/L (98-107); CREATININE 0.92 mg/dL (0.7-1.3)
--- NOTE | 2020-06-07 21:30 | NUR ---
PT ROAD TESTED AFTER FLUIDS, PT STATED" I FEEL DELIGHTFUL AND WOULD PERFER TO GO HOME"
[2020-06-07 22:17] VITALS: BP 142/78
== END 2020-06-07 22:19 | disposition home or self-care (01) ==
LOC: ED 20:08
DX: R55 Syncope and collapse (principal); R42 Dizziness and giddiness; R11.0 Nausea; I44.7 Left bundle-branch block, unspecified; I10 Essential (primary) hypertension; E78.5 Hyperlipidemia, unspecified; Z86.73 Personal history of transient ischemic attack (TIA), and cerebral infarction without residual deficits; Z90.89 Acquired absence of other organs; Z87.891 Personal history of nicotine dependence; Z85.828 Personal history of other malignant neoplasm of skin
CPT/HCPCS: 36415; 80048; 85025; 93005; 96360; 99284; J7030

== ENCOUNTER → 2020-11-27 | Outpatient (CLI) | payer MEDICARE ==
[~2020-11-27] MED LIST changes: +AMLO-210 PO; +ASPI-614 PO; +DORZ10DR27 OP; -OXYC5TAB3 PO; +OXYC5TAB98 PO; +PSYL660P18 PO
== END | disposition home or self-care (01) ==
LOC: CFH 10:20
PROVIDERS: ATTEND Internal Medicine
DX: M79.604 Pain in right leg (principal); M25.551 Pain in right hip
CPT/HCPCS: 72170

== ENCOUNTER 2021-05-22 16:15 | Outpatient (CLI) | payer MEDICARE | END 2021-05-22 23:59 | disposition home or self-care (01) | LOC: LAB 16:15 | PROVIDERS: ATTEND Psychiatry & Neurology Neurology | DX: Z02.9 Encounter for administrative examinations, unspecified (principal) ==

== ENCOUNTER → 2021-05-22 | Outpatient (CLI) | payer MEDICARE ==
[2021-05-22 16:48] LABS: BASOPHILS % (AUTO) 1 % (0-1); EOSINOPHILS % (AUTO) 3 % (1-7); LYMPHOCYTES % (AUTO) 31 % (22-44); MEAN CORPUSCULAR HEMOGLOBIN 31.9 pg (27.5-34.5); MEAN CORPUSCULAR HGB CONC 33.7 g/dL (33.2-36.2); MEAN PLATELET VOLUME 7.9 fL (7.4-10.4); MONOCYTES % (AUTO) 13 % (2-9); NEUTROPHILS % (AUTO) 51 % (42-75); PLATELET COUNT 183 x10^3/uL (130-400); RED BLOOD COUNT 4.44 x10^6/uL (4.38-5.82); RED CELL DISTRIBUTION WIDTH 14.1 % (9.4-14.8)
[2021-05-22 17:24] LABS: ALANINE AMINOTRANSFERASE 28 U/L (12-78); ALBUMIN 3.8 g/dL (3.4-5.0); ALKALINE PHOSPHATASE 77 U/L (45-117); ANION GAP 9 mmol/L (5-15); BILIRUBIN,TOTAL 0.6 mg/dL (0.2-1.0); CALCIUM 9.4 mg/dL (8.5-10.1); CHLORIDE 100 mmol/L (98-107); CREATININE 0.99 mg/dL (0.7-1.3); TOTAL PROTEIN 7.5 g/dL (6.4-8.2)
[2021-05-22 17:25] LABS: FOLATE LEVEL 19.6 ng/mL (3.1-17.5)
== END | disposition home or self-care (01) ==
LOC: LAB 16:12
PROVIDERS: ATTEND Internal Medicine
DX: E78.5 Hyperlipidemia, unspecified (principal); E03.9 Hypothyroidism, unspecified; D64.9 Anemia, unspecified
CPT/HCPCS: 36415; 80053; 82306; 82607; 82746; 84439; 84443; 85025